=== PATIENT | male | born 1945 | race Caucasian/White ===

== ENCOUNTER 2017-06-26 14:00 | Day surgery (SDC) | payer OTHER ==
[2017-06-26] MEDS ORDERED: BUPIVACAINE HCL 0.25% MPF 10 ML SOL INFIL ONE (15:26)
[2017-06-26] MEDS: DEXAMETHASONE SOD PHOS PF 10 MG/ML SOL IJ ONE ×3 (15:34→15:48)
[2017-06-26 16:17] VITALS: BP 149/82; PULSE 68; RESP 18; TEMP 97.5; O2SAT 98
== END 2017-06-26 17:17 | disposition home or self-care (01) | DRG 552 ==
LOC: SURG 14:00
PROVIDERS: ATTEND Nurse Anesthetist, Certified Registered
DX: M48.062 Spinal stenosis, lumbar region with neurogenic claudication (principal)
CPT/HCPCS: J1100

== ENCOUNTER 2017-08-07 11:43 | Day surgery (SDC) | payer MEDICARE, BC ==
[2017-08-07 12:09] VITALS: PULSE 74
[2017-08-07] MEDS ORDERED: TRIAMCINOLONE ACETONIDE 40 MG/ML SUS ONE (12:20)
[2017-08-07] MEDS ORDERED: BUPIVACAINE HCL 0.25% MPF 10 ML SOL INFIL ONE (12:21)
[2017-08-07 12:50] VITALS: BP 144/79; RESP 18; TEMP 97.5; O2SAT 94
== END 2017-08-07 13:07 | disposition home or self-care (01) | DRG 554 ==
LOC: SURG 11:43
PROVIDERS: ATTEND Nurse Anesthetist, Certified Registered
DX: M12.9 Arthropathy, unspecified (principal); E11.9 Type 2 diabetes mellitus without complications
CPT/HCPCS: J3300

== ENCOUNTER 2017-11-06 12:23 | Day surgery (SDC) | payer MEDICARE, BC ==
[2017-11-06] MEDS ORDERED: BUPIVACAINE HCL 0.25% MPF 10 ML SOL INFIL ONE (13:04)
[2017-11-06] MEDS ORDERED: TRIAMCINOLONE ACETONIDE 40 MG/ML SUS ONE (13:04)
[2017-11-06 13:38] VITALS: BP 148/74; PULSE 62; RESP 18; TEMP 97.4; O2SAT 95
== END 2017-11-06 14:02 | disposition home or self-care (01) | DRG 552 ==
LOC: SURG 12:23
PROVIDERS: ATTEND Nurse Anesthetist, Certified Registered
DX: M53.3 Sacrococcygeal disorders, not elsewhere classified (principal)
CPT/HCPCS: J3300

== ENCOUNTER → 2017-12-24 | Day surgery (SDC) | payer MEDICARE, BC ==
[~2017-12-24] MED LIST: BUPIVACAINE HCL 0.25% MPF 10 ML SOL INFIL ONE
[2017-12-24 14:06] VITALS: TEMP 97.7
[2017-12-24 14:38] VITALS: RESP 20; O2SAT 98
[2017-12-24 14:41] VITALS: BP 157/82; PULSE 61
== END | disposition home or self-care (01) | DRG 554 ==
LOC: SURG 13:39
PROVIDERS: ATTEND Nurse Anesthetist, Certified Registered
DX: M12.88 Other specific arthropathies, not elsewhere classified, other specified site (principal)

== ENCOUNTER 2018-01-27 08:03 | Day surgery (SDC) | payer MEDICARE, BC ==
[2018-01-27] MEDS ORDERED: BUPIVACAINE HCL 0.25% MPF 30 ML SOL INFIL ONE (09:13)
[2018-01-27] MEDS ORDERED: DEXAMETHASONE SOD PHOS PF 10 MG/ML SOL IJ ONE (09:13)
[2018-01-27 09:53] VITALS: BP 158/88; PULSE 64; RESP 18; TEMP 97.4; O2SAT 94
== END 2018-01-27 10:42 | disposition home or self-care (01) | DRG 552 ==
LOC: SURG 08:03
PROVIDERS: ATTEND Nurse Anesthetist, Certified Registered
DX: M51.17 Intervertebral disc disorders with radiculopathy, lumbosacral region (principal)
CPT/HCPCS: J1100

== ENCOUNTER → 2018-02-11 | Day surgery (SDC) | payer MEDICARE, BC ==
[~2018-02-11] MED LIST changes: -BUPIVACAINE HCL 0.25% MPF 10 ML SOL INFIL ONE; +BUPIVACAINE HCL 0.25% MPF 30 ML SOL INFIL ONE; +TRIAMCINOLONE ACETONIDE 40 MG/ML SUS ONE
[2018-02-11 12:53] VITALS: TEMP 98
[2018-02-11 13:42] VITALS: BP 121/64; PULSE 60; RESP 20; O2SAT 95
== END | disposition home or self-care (01) | DRG 558 ==
LOC: SURG 12:25
PROVIDERS: ATTEND Nurse Anesthetist, Certified Registered
DX: M70.61 Trochanteric bursitis, right hip (principal); E11.9 Type 2 diabetes mellitus without complications
CPT/HCPCS: J3300